=== PATIENT | male | born 1965 | race Caucasian/White ===

== ENCOUNTER 2018-06-09 15:49 | Inpatient (IN) | payer OTHER ==
[2018-06-09 15:54] VITALS: BMI 30.9
--- NOTE | 2018-06-09 16:03 | PDOC ---
History of Present Illness - General Chief Complaint: Chest Pain Stated Complaint: SOB, DIZZINESS, CHEST HEAVINESS Time Seen by Provider: 06/09/18 16:02 - History of Present Illness Initial Comments: 52yo M with PMH of "early HTN" presenting with shortness of breath, chest pain, and lightheadedness. Patient states that his symptoms started this morning. He describes his chest pain as "heavy" and it is non-radiating. No nausea, vomiting , or diaphoresis. Patient feels like he cannot catch his breath even as he is laying on the stretcher. Patient has had this lightheaded sensation in the past , but his current state is more severe. He also reports a "buzzing" sensation in his ears. Saw a consultant education (does not remember the name) about five years ago because of chest pain and had a stress test which he believes was normal because only lifestyle changes (better diet and exercise) were advised. Never had an PA. Father had a stroke in his 60s. No hemoptysis, no recent surgical history, no recent immobilization, no hormone use, no history of DVT or PE. Denies history of abnormal heart rhythm. Endorses some chills that started during history-taking. No fevers or abdominal pain. Past History - Past Medical History Allergies/Adverse Reactions: Allergies Allergy/AdvReac Type Severity Reaction Status Date / Time No Known Drug Allergies Allergy Verified 06/09/18 15:50 CATS Allergy Severe Difficulty Uncoded 06/09/18 15:50 Breathing ENVIRONMENTAL Allergy Intermediate NASAL Uncoded 06/09/18 15:50 CONGESTIN/ITCHY WATERY EYES Home Medications: Ambulatory Orders C/Sourcherry/Celery/Grape Seed [Tart Palmer Capsule] 1 each PO DAILY 06/09/18 Glucosamine/D3/Boswellia Julia [Osteo Bi-Flex Caplet] 2 each PO DAILY 06/09/18 [place]-3/Dha/Epa/Fish Oil [Fish Oil 500 mg Softgel] 1 each PO DAILY 06/09/18 Anemia: No Asthma: No Cancer: No Cardiac Disorders: No CVA: No COPD: No CHF: No Dementia: No Diabetes: No GI Disorders: No Disorders: No HTN: No (BORDERLINE/NO MEDS) Hypercholesterolemia: No Liver Disease: No Seizures: No Thyroid Disease: No - Surgical History Abdominal Surgery: No Appendectomy: No Cardiac Surgery: No Cholecystectomy: No Lung Surgery: No Neurologic Surgery: No Orthopedic Surgery: Yes (LEFT KNEE SCOPE 1994/ACL LEFT KNEE 2004) - Suicide/Smoking/Psychosocial Hx Smoking History: Never smoked Have you smoked in the past 12 months: No Hx Alcohol Use: No Drug/Substance Use Hx: No Substance Use Type: Alcohol, Marijuana Hx Substance Use Treatment: No Review of Systems - Review of Systems Comments:: Constitutional: no fever, +chills HEENT: no throat pain, no dysphagia Cardiovascular: +chest pain, no palpitations Respiratory: +cough, +shortness of breath Gastrointestinal: no abdominal pain, no nausea Genitourinary: no dysuria, no frequency Musculoskeletal: no myalgia, no arthralgia Skin: no rash, no itching Neurologic: no headache, +lightheaded *Physical Exam - Vital Signs Last Vital Signs Temp Pulse Resp BP Pulse Ox 97.6 F 83 18 129/97 99 06/09/18 15:49 06/09/18 15:49 06/09/18 15:49 06/09/18 15:49 06/09/18 15:49 - Physical Exam Comments: General: Awake, alert, and fully oriented, in no acute distress Head: No signs of trauma Eyes: EOMI, sclera anicteric ENT: Moist mucus membranes Neck: Normal ROM, supple Lungs: Lungs clear, Normal breath sounds Cardio: Regular rhythm, S1 and S2 present Abdomen: Soft, nontender. No guarding, no rebound, no masses Extremities: Normal range of motion, Distal pulses present SKIN: Warm, Dry, normal turgor Neurologic: Cranial nerves II through XII grossly intact. Normal speech Moderate Sedation - Procedure Monitoring Vital Signs: Procedure Monitoring Vital Signs Temperature 97.6 F 06/09/18 15:49 Pulse Rate 83 06/09/18 15:49 Respiratory Rate 18 06/09/18 15:49 Blood Pressure 129/97 06/09/18 15:49 O2 Sat by Pulse Oximetry (%) 99 06/09/18 15:49 ED Treatment Course - LABORATORY CBC & Chemistry Diagram: 06/10/18 05:30 06/10/18 05:30 Medical Decision Making - Medical Decision Making 52yo M with PMH of "early HTN" presenting with shortness of breath, chest pain, and lightheadedness. EKG: rate 188, Qtc 414, Afib with RVR (no prior EKGs available) Patient denies prior history of afib or other abnormal heart rhythm. Since he has felt lightheaded in the past, it is possible that he has had uncontrolled afib. Due to concern for thrombi from Afib, D-dimer was sent and heparin drip was initiated. IV, O2, monitor Cardiac workup. 1L NS, 10mg diltiazem Patient continued to be tachycardic, so another 1L NS was given ASA given CXR with cardiomegaly, but no acute pathology Tpn<0.03 Pending BNP and D-dimer 06/09/18 18:03 CTA report pending Elevated BNP Dr. Mesa discussed this case with the hospitalist who accepted patient for admission. 06/09/18 18:45 *DC/Admit/Observation/Transfer Diagnosis at time of Disposition: New onset atrial fibrillation - Discharge Dispostion Condition at time of disposition: Stable - Referrals - Patient Instructions - Post Discharge Activity
--- NOTE | 2018-06-09 16:05 | PDOC ---
Attending Attestation - Resident Resident Name: Gia Hanna - ED Attending Attestation I have performed the following: I have examined & evaluated the patient, The case was reviewed & discussed with the resident, I agree w/resident's findings & plan - HPI HPI: 06/09/18 17:07 Pt comes with chest heaviness and tightness and SOB and incidentally found to be in rapid afib. He doesn't use drugs. He doesn't smoke, and doesn't use cocaine. Pt states he had a marijuana gummy bear 1 month ago. Pt has no fevers or chills. No N/V/D; he ate only a bagel all day. He felt ill all day. Came in with girlfriend, who left work to bring him in. - Physicial Exam PE: 06/09/18 17:18 Agree with resident exam. - Medical Decision Making 06/09/18 17:18 Pt came in rapid afib; immediately, 1L IVF saline was started as initial BP was low. Repeat BP's higher, so we have 10mg diltiazem IVPush. Pt remained tachy at 160-200s, so 2nd IV saline was started. Pt is periodically taking heavy breaths, and he states that he has had similar chest palpitations and SOB and tightness in the past, so I am worried that he may have developed blood clots in his fibrillating atria in the past and may have a PE burden. We started heparin 5000U IVP and then 1000Unit drip. Pt also given aspirin, given that he has septal q waves and I am worried that he has been tachy all day and that may be straining his heart and may result in NE. 06/09/18 17:22 Alcohol level <3 TSH,Ddimer,BNP pending 06/09/18 17:42 borderline cardiomegaly 06/09/18 17:44 Labs normal; 1st cardiac enzyme normal. BNP pending and d dimer pending 06/09/18 18:14 Pt will be signed out to the night ER doc
[2018-06-09] MEDS ORDERED: SODIUM CHLORIDE 0.9% 500 ML INFUS.BAG IV ONE ×2 (16:18→17:49)
[2018-06-09] MEDS ORDERED: dilTIAZem HCL 50 MG/10 ML - 10 ML VIAL IVPUSH ONE (16:18)
[2018-06-09] MEDS ORDERED: dilTIAZem HCL 50 MG/10 ML - 10 ML VIAL ONE (16:27)
[2018-06-09 16:32] LABS: BASO % 1.9 % (0-2.0); EOS % 1.9 % (0-4.5); HEMATOCRIT 46.2 % (35.4-49); HEMOGLOBIN 15.5 GM/dl (11.7-16.9); LYMPH % 14.5 % (8-40); MCH 30.7 pg (25.7-33.7); MCHC 33.5 g/dl (32.0-35.9); MEAN CELL VOLUME 91.4 fl (80-96); MEAN PLT VOLUME 8.6 fl (7.5-11.1); MONO % 7.8 % (3.8-10.2); NEUT % 73.9 % (42.8-82.8); PLATELET COUNT 268 K/MM3 (134-434); RBC 5.05 M/mm3 (4.00-5.60); RDW 12.1 % (11.9-15.9); WHITE BLOOD COUNT 9.5 K/mm3 (4.0-10.8)
[2018-06-09] MEDS ORDERED: HEPARIN INFUSION - 25,000 UNITS/500 ML INFUS.BAG IVPB ONE (16:56)
[2018-06-09] MEDS ORDERED: HEPARIN NA (PORCINE) 5,000 UNITS/ML 1ML VIAL ONE (16:56)
[2018-06-09] MEDS ORDERED: ASPIRIN 81 MG CHEWABLE TABLETS PO ONE (16:58)
[2018-06-09 17:00] LABS: INR 1.02 (0.82-1.09); PROTHROMBIN TIME (PATIENT) 11.4 SEC (10.2-13.0)
[2018-06-09] MEDS ORDERED: HEPARIN NA (PORCINE) 5,000 UNITS/ML 1ML VIAL IVPUSH PRN (17:00)
[2018-06-09] MEDS ORDERED: ASPIRIN 81 MG CHEWABLE TABLETS ONE (17:01)
[2018-06-09] MEDS: HEPARIN NA (PORCINE) 5,000 UNITS/ML 1ML VIAL IVPUSH PRN (17:01)
[2018-06-09 17:04] LABS: ALBUMIN 3.9 g/dl (3.4-5.0); ALK PHOS 62 U/L (45-117); ANION GAP 6 MMOL/L (8-16); BILIRUBIN,TOTAL 0.9 mg/dl (0.2-1); BLOOD UREA NITROGEN 12 mg/dl (7-18); CALCIUM 9.2 mg/dl (8.5-10); CHLORIDE 105 mmol/L (98-107); CO2 25 mmol/L (21-32); CREATININE 0.8 mg/dl (0.55-1.3); GLUCOSE,RANDOM 104 mg/dl (74-106); POTASSIUM 4.2 mmol/L (3.5-5.1); SGOT/AST 18 U/L (15-37); SGPT/ALT 17 U/L (13-61); SODIUM 136 mmol/L (136-145); TOT PROT 6.9 g/dl (6.4-8.2)
[2018-06-09] MEDS: HEPARIN - 25,000 UNIT in SODIUM CHLORIDE 495 ML IV SCH (17:07)
[2018-06-09 18:21] LABS: URINE APPEARANCE Clear; URINE BILIRUBIN Negative (NEGATIVE); URINE COLOR Yellow; URINE GLUCOSE (UA) Negative (NEGATIVE); URINE KETONE Negative (NEGATIVE); URINE LEUK ESTERASE Negative (NEGATIVE); URINE NITRITE Negative (NEGATIVE); URINE PROTEIN Negative (NEGATIVE); URINE UROBILINOGEN 0.2 (0.2-1.0)
[2018-06-09 19:17] LABS: COCAINE, UR NEGATIVE ng/ml (CUTOFF=300); METHADONE, UR NEGATIVE ng/ml (CUTOFF=300); OPIATES, URI NEGATIVE ng/ml (CUTOFF=300); PHENCYCLIDINE,URINE NEGATIVE ng/ml (CUTOFF=25); URINE BARBITURATES NEGATIVE ng/ml (CUTOFF=200); URINE BENZODIAZEPINES NEGATIVE ng/ml (CUTOFF=200)
[2018-06-09 19:18] LABS: URINE AMPHETAMINES NEGATIVE ng/ml (CUTOFF=500)
--- NOTE | 2018-06-09 21:27 | PDOC ---
*Physical Exam - Vital Signs Last Vital Signs Temp Pulse Resp BP Pulse Ox 97.6 F 76 16 141/88 99 06/09/18 15:49 06/09/18 20:00 06/09/18 20:00 06/09/18 20:00 06/09/18 20:00 ED Treatment Course - LABORATORY CBC & Chemistry Diagram: 06/09/18 16:22 06/09/18 16:22 - ADDITIONAL ORDERS Additional order review: Laboratory Results 06/09/18 06/09/18 06/09/18 17:40 17:40 16:47 PT with INR INR PTT (Actin FS) D-Dimer Sodium Potassium Chloride Carbon Dioxide Anion Gap BUN Creatinine Creat Clearance w eGFR Random Glucose Calcium Total Bilirubin AST ALT Alkaline Phosphatase Creatine Kinase Troponin I B-Natriuretic Peptide 185.3 H Total Protein Albumin TSH Urine Color Yellow Urine Appearance Clear Urine pH 7.0 Ur Specific [place] 1.010 Urine Protein Negative Urine Glucose (UA) Negative Urine Ketones Negative Urine Blood Negative Urine Nitrite Negative Urine Bilirubin Negative Urine Urobilinogen 0.2 Ur Leukocyte Esterase Negative Opiates Screen Negative Methadone Screen Negative Barbiturate Screen Negative Phencyclidine Screen Negative Ur Amphetamines Screen Negative MDMA (Ecstasy) Screen Negative Benzodiazepines Screen Negative Cocaine Screen Negative U Marijuana (THC) Screen Negative Alcohol, Quantitative 06/09/18 06/09/18 06/09/18 16:47 16:28 16:28 PT with INR 11.4 INR 1.02 PTT (Actin FS) 27.6 D-Dimer 256 Sodium Potassium Chloride Carbon Dioxide Anion Gap BUN Creatinine Creat Clearance w eGFR Random Glucose Calcium Total Bilirubin AST ALT Alkaline Phosphatase Creatine Kinase Troponin I B-Natriuretic Peptide Total Protein Albumin TSH Urine Color Urine Appearance Urine pH Ur Specific [place] Urine Protein Urine Glucose (UA) Urine Ketones Urine Blood Urine Nitrite Urine Bilirubin Urine Urobilinogen Ur Leukocyte Esterase Opiates Screen Methadone Screen Barbiturate Screen Phencyclidine Screen Ur Amphetamines Screen MDMA (Ecstasy) Screen Benzodiazepines Screen Cocaine Screen U Marijuana (THC) Screen Alcohol, Quantitative 06/09/18 06/09/18 06/09/18 16:22 16:22 16:22 PT with INR INR PTT (Actin FS) D-Dimer Sodium 136 Potassium 4.2 Chloride 105 Carbon Dioxide 25 Anion Gap 6 L BUN 12 Creatinine 0.8 Creat Clearance w eGFR > 60 Random Glucose 104 Calcium 9.2 Total Bilirubin 0.9 AST 18 ALT 17 Alkaline Phosphatase 62 Creatine Kinase 49 Troponin I < 0.03 B-Natriuretic Peptide Total Protein 6.9 Albumin 3.9 TSH 0.91 Urine Color Urine Appearance Urine pH Ur Specific [place] Urine Protein Urine Glucose (UA) Urine Ketones Urine Blood Urine Nitrite Urine Bilirubin Urine Urobilinogen Ur Leukocyte Esterase Opiates Screen Methadone Screen Barbiturate Screen Phencyclidine Screen Ur Amphetamines Screen MDMA (Ecstasy) Screen Benzodiazepines Screen Cocaine Screen U Marijuana (THC) Screen Alcohol, Quantitative < 3.0 06/09/18 16:22 RBC 5.05 MCV 91.4 MCHC 33.5 RDW 12.1 MPV 8.6 Neutrophils % 73.9 Lymphocytes % 14.5 Monocytes % 7.8 Eosinophils % 1.9 Basophils % 1.9 - Medications Given in the ED: ED Medications Discontinued Medications Generic Name Dose Route Start Last Admin Trade Name Freq PRN Reason Stop Dose Admin Aspirin 324 mg 06/09/18 16:58 06/09/18 17:03 Asa - PO 06/09/18 16:59 324 mg ONCE ONE Administration Diltiazem HCl 10 mg 06/09/18 16:18 06/09/18 16:29 Cardizem Injection - IVPUSH 06/09/18 16:19 10 mg ONCE ONE Administration Sodium Chloride 1,000 ml 06/09/18 16:18 06/09/18 16:29 Normal Saline - IV 06/09/18 16:19 1,000 ml ONCE ONE Administration Sodium Chloride 1,000 ml 06/09/18 17:49 06/09/18 17:35 Normal Saline - IV 06/09/18 17:50 1,000 ml ONCE ONE Administration Progress Note - Progress Note Progress Note: Care of this patient was transferred to sd at 1800 hrs. This is a 52-year-old female who came in with new onset atrial fibrillation. Patient had some short initiated shortness of breath and chest discomfort. Patient given Cardizem for rate control and a workup was initiated. Patient was heparinized Patient is waiting for transfer to [facility] for a telemetry bed. *DC/Admit/Observation/Transfer Diagnosis at time of Disposition: New onset atrial fibrillation - Discharge Dispostion Condition at time of disposition: Stable Decision to Admit order: Yes - Referrals Referrals: Lucina Hairston [Primary Care Provider] - - Patient Instructions - Post Discharge Activity
[2018-06-09] MEDS ORDERED: TEMAZEPAM 15 MG CAPSULE PO ONE (23:30)
--- NOTE | 2018-06-09 23:48 | HP ---
CHIEF COMPLAINT: chest heaviness, shortness of breath and palpitations HISTORY OF PRESENT ILLNESS: 52 year old male with history of hypertension (on no medications) who presents to ER with complaints of chest heaviness described as an elephant sitting on his chest, shortness of breath and palpitations which has been ongoing for a long period of time. Today he reported having palpitations also . He was found to have new onset atrial fibrillation with RVR heart rate 170's. He denied excessive use of alcohol, caffeine, or drug use. He denied prior history of arrthymias or stroke. Upon questioning patient reports patient snores at night, denies history of sleep apnea. Initially in the ER blood pressure was soft and he received 1 liter of fluids. He was then given IV bolus of Cardizem 10 mg for heart rate control which showed improvement. D-Dimer was elevated at 256. CT angiogram of chest showed no evidence of pulmonary embolism. BNP is 185, troponin normal, EKG atrial fibrillation with RVR, CXR showed mild cardiomegaly. TSH was normal. Toxicology screen was negative. He was initiated on a continuous IV heparin drip. He was transferred from [place] to [facility] for a telemetry bed and further cardiac management and evaluation. On arrival to floor he is in a normal sinus rhythm with heart rate in the upper 80's and 90's. Recent Travel: Denies PAST MEDICAL HISTORY: Hypertension PAST SURGICAL HISTORY: hernia repair 2 years ago left leg surgery Social History: Smoking:Denies Alcohol:Denies, drinks 2 cups of coffee a day Drugs: Denies Family History: Father had congestive heart failure, + family history of stroke Allergies No Known Drug Allergies Allergy (Verified 06/09/18 15:50) CATS Allergy (Severe, Uncoded 06/09/18 15:50) Difficulty Breathing ENVIRONMENTAL Allergy (Intermediate, Uncoded 06/09/18 15:50) NASAL CONGESTIN/ITCHY WATERY EYES HOME MEDICATIONS: Home Medications Medication Instructions Recorded C/Sourcherry/Celery/Grape Seed 1 each PO DAILY 06/09/18 [Tart Palmer Capsule] Glucosamine/D3/Boswellia Julia 2 each PO DAILY 06/09/18 [Osteo Bi-Flex Caplet] [place]-3/Dha/Epa/Fish Oil [Fish Oil 1 each PO DAILY 06/09/18 500 mg Softgel] REVIEW OF SYSTEMS CONSTITUTIONAL: Absent: fever, chills, diaphoresis, generalized weakness, malaise, loss of appetite, weight change HEENT: Absent: rhinorrhea, nasal congestion, throat pain, throat swelling, difficulty swallowing, mouth swelling, ear pain, eye pain, visual changes CARDIOVASCULAR: Absent: chest pain, syncope, palpitations, irregular heart rate, lightheadedness , peripheral edema RESPIRATORY: Absent: cough, shortness of breath, dyspnea with exertion, orthopnea, wheezing, stridor, hemoptysis GASTROINTESTINAL: Absent: abdominal pain, abdominal distension, nausea, vomiting, diarrhea, constipation, melena, hematochezia GENITOURINARY: Absent: dysuria, frequency, urgency, hesitancy, hematuria, flank pain, genital pain MUSCULOSKELETAL: Absent: myalgia, arthralgia, joint swelling, back pain, neck pain SKIN: Absent: rash, itching, pallor HEMATOLOGIC/IMMUNOLOGIC: Absent: easy bleeding, easy bruising, lymphadenopathy, frequent infections ENDOCRINE: Absent: unexplained weight gain, unexplained weight loss, heat intolerance, cold intolerance NEUROLOGIC: Absent: headache, focal weakness or paresthesias, dizziness, unsteady gait, seizure, mental status changes, bladder or bowel incontinence PSYCHIATRIC: Absent: anxiety, depression, suicidal or homicidal ideation, hallucinations. PHYSICAL EXAMINATION Vital Signs - 24 hr 06/09/18 06/09/18 06/09/18 15:49 16:10 16:29 Temperature 97.6 F Pulse Rate 83 Pulse Rate [ 181 H Apical] Respiratory 18 19 Rate Blood Pressure 129/97 Blood Pressure 133/94 [Left Arm] O2 Sat by Pulse 99 100 100 Oximetry (%) 06/09/18 06/09/18 06/09/18 16:48 17:21 18:52 Temperature Pulse Rate Pulse Rate [ 171 H 91 H 83 Apical] Respiratory 18 20 18 Rate Blood Pressure Blood Pressure 123/99 137/94 144/93 [Left Arm] O2 Sat by Pulse 100 100 100 Oximetry (%) 06/09/18 06/09/18 20:00 22:04 Temperature Pulse Rate Pulse Rate [ 76 85 Apical] Respiratory 16 16 Rate Blood Pressure Blood Pressure 141/88 127/84 [Left Arm] O2 Sat by Pulse 99 96 Oximetry (%) GENERAL: awake, alert, and fully oriented, in no acute distress. HEAD: normal with no signs of trauma. EYES: Pupils equal, round and reactive to light EARS, NOSE, THROAT: Ears normal, nares patent NECK: Normal range of motion, supple LUNGS: Breath sounds equal, clear to auscultation bilaterally. no wheezing, no rales no use of accessory muscle use HEART: Regular rate and rhythm, normal S1 and S2 no murmurs ABDOMEN: soft, nontender, not distended, normoactive bowel sounds MUSCULOSKELETAL: normal range of motion at all joints UPPER EXTREMITIES: 2+ pulses, warm, well-perfused. No cyanosis. No clubbing. No peripheral edema. LOWER EXTREMITIES: 2+ pulses, warm, well-perfused. No calf tenderness. No peripheral edema. NEUROLOGICAL: no neuro focal deficits, normal speech, normal gait. PSYCHIATRIC: cooperative. good eye contact. appropriate mood and affect. SKIN: warm, dry, normal turgor, no rashes or lesions noted, normal capillary refill. Laboratory Results - last 24 hr 06/09/18 06/09/18 06/09/18 16:22 16:22 16:22 WBC 9.5 RBC 5.05 Hgb 15.5 Hct 46.2 MCV 91.4 MCH 30.7 MCHC 33.5 RDW 12.1 Plt Count 268 MPV 8.6 Absolute Neuts (auto) 7.0 Neutrophils % 73.9 Lymphocytes % 14.5 Monocytes % 7.8 Eosinophils % 1.9 Basophils % 1.9 PT with INR INR PTT (Actin FS) D-Dimer Sodium 136 Potassium 4.2 Chloride 105 Carbon Dioxide 25 Anion Gap 6 L BUN 12 Creatinine 0.8 Creat Clearance w eGFR > 60 Random Glucose 104 Calcium 9.2 Total Bilirubin 0.9 AST 18 ALT 17 Alkaline Phosphatase 62 Creatine Kinase 49 Troponin I < 0.03 B-Natriuretic Peptide Total Protein 6.9 Albumin 3.9 TSH 0.91 Urine Color Urine Appearance Urine pH Ur Specific [place] Urine Protein Urine Glucose (UA) Urine Ketones Urine Blood Urine Nitrite Urine Bilirubin Urine Urobilinogen Ur Leukocyte Esterase Opiates Screen Methadone Screen Barbiturate Screen Phencyclidine Screen Ur Amphetamines Screen MDMA (Ecstasy) Screen Benzodiazepines Screen Cocaine Screen U Marijuana (THC) Screen Alcohol, Quantitative 06/09/18 06/09/18 06/09/18 16:22 16:28 16:28 WBC RBC Hgb Hct MCV MCH MCHC RDW Plt Count MPV Absolute Neuts (auto) Neutrophils % Lymphocytes % Monocytes % Eosinophils % Basophils % PT with INR 11.4 INR 1.02 PTT (Actin FS) 27.6 D-Dimer Sodium Potassium Chloride Carbon Dioxide Anion Gap BUN Creatinine Creat Clearance w eGFR Random Glucose Calcium Total Bilirubin AST ALT Alkaline Phosphatase Creatine Kinase Troponin I B-Natriuretic Peptide Total Protein Albumin TSH Urine Color Urine Appearance Urine pH Ur Specific [place] Urine Protein Urine Glucose (UA) Urine Ketones Urine Blood Urine Nitrite Urine Bilirubin Urine Urobilinogen Ur Leukocyte Esterase Opiates Screen Methadone Screen Barbiturate Screen Phencyclidine Screen Ur Amphetamines Screen MDMA (Ecstasy) Screen Benzodiazepines Screen Cocaine Screen U Marijuana (THC) Screen Alcohol, Quantitative < 3.0 06/09/18 06/09/18 06/09/18 16:47 16:47 17:40 WBC RBC Hgb Hct MCV MCH MCHC RDW Plt Count MPV Absolute Neuts (auto) Neutrophils % Lymphocytes % Monocytes % Eosinophils % Basophils % PT with INR INR PTT (Actin FS) D-Dimer 256 Sodium Potassium Chloride Carbon Dioxide Anion Gap BUN Creatinine Creat Clearance w eGFR Random Glucose Calcium Total Bilirubin AST ALT Alkaline Phosphatase Creatine Kinase Troponin I B-Natriuretic Peptide 185.3 H Total Protein Albumin TSH Urine Color Urine Appearance Urine pH Ur Specific [place] Urine Protein Urine Glucose (UA) Urine Ketones Urine Blood Urine Nitrite Urine Bilirubin Urine Urobilinogen Ur Leukocyte Esterase Opiates Screen Negative Methadone Screen Negative Barbiturate Screen Negative Phencyclidine Screen Negative Ur Amphetamines Screen Negative MDMA (Ecstasy) Screen Negative Benzodiazepines Screen Negative Cocaine Screen Negative U Marijuana (THC) Screen Negative Alcohol, Quantitative 06/09/18 17:40 WBC RBC Hgb Hct MCV MCH MCHC RDW Plt Count MPV Absolute Neuts (auto) Neutrophils % Lymphocytes % Monocytes % Eosinophils % Basophils % PT with INR INR PTT (Actin FS) D-Dimer Sodium Potassium Chloride Carbon Dioxide Anion Gap BUN Creatinine Creat Clearance w eGFR Random Glucose Calcium Total Bilirubin AST ALT Alkaline Phosphatase Creatine Kinase Troponin I B-Natriuretic Peptide Total Protein Albumin TSH Urine Color Yellow Urine Appearance Clear Urine pH 7.0 Ur Specific [place] 1.010 Urine Protein Negative Urine Glucose (UA) Negative Urine Ketones Negative Urine Blood Negative Urine Nitrite Negative Urine Bilirubin Negative Urine Urobilinogen 0.2 Ur Leukocyte Esterase Negative Opiates Screen Methadone Screen Barbiturate Screen Phencyclidine Screen Ur Amphetamines Screen MDMA (Ecstasy) Screen Benzodiazepines Screen Cocaine Screen U Marijuana (THC) Screen Alcohol, Quantitative ASSESSMENT/PLAN: Mr. Murrieta is a 52 year old male with history of hypertension (on no medications) who presented with symptoms of chest heaviness, shortness of breath and palpitations. He was found to have new onset atrial fibrillation with RVR heart rate 170's. Initially in the ER blood pressure was soft and he received 1 liter of fluids. H was then given IV bolus of Cardizem 10 mg for heart rate control which showed improvement. D-Dimer was elevated at 256. CT angiogram of chest showed no evidence of pulmonary embolism. CXR showed mild cardiolmegaly. TSH was normal. Toxicology screen was negative. He was transferred from [place] to a telemetry bed and a further cardiac evaluation. New Onset Atrial Fibrillation Currently he is in a normal sinus rhythm with good heart rate control.Patient appears euvolemic.Potassium WNL. Added metoprolol tartrate 25 mg twice daily. Continue with continue IV heparin for anticoagulation. CUCO VASc score is 1 for stroke risk (hypertension). Cardiology- Dr. 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 TSH is normal. May benefit from an outpatient sleep study evaluation to exclude sleep apnea. Pending TTE to exclude tacycardia induced cardiomyopathy. Check magnesium level in am. Chest Pain Currently denies symptoms of chest discomfort.Initial troponin is normal. EKG with no acute signs of ischemia, nonspecific ST changes. Continue to trend troponins. Will defer workup to Cardiology evaluation. Will keep NPO after midnight in case stress test is recommended. CXR with mild cardiomegaly. Echocardiogram has been ordered to evaluate LV function and exclude wall motion and valvular abnormalities. Hypertension Controlled. Continue with beta naeem. FEN NPO, monitor electrolytes closely Visit type - Emergency Visit Emergency Visit: Yes ED Registration Date: 06/09/18 Care time: The patient presented to the Emergency Department on the above date and was hospitalized for further evaluation of their emergent condition. - New Patient This patient is new to me today: Yes Date on this admission: 06/10/18 - Critical Care Critical Care patient: No
[2018-06-09] MEDS: METOPROLOL TARTRATE 25 MG TABLET (FP) PO SCH (23:57)
[2018-06-10] MEDS: HEPARIN - 25,000 UNIT in SODIUM CHLORIDE 495 ML IV SCH ×2 (00:30→18:48)
[2018-06-10] MEDS: HEPARIN NA (PORCINE) 5,000 UNITS/ML 1ML VIAL IVPUSH PRN (01:31)
[2018-06-10 06:49] LABS: HEMATOCRIT 40.4 % (35.4-49); HEMOGLOBIN 13.8 GM/dL (11.7-16.9); MCH 31.2 pg (25.7-33.7); MCHC 34.2 g/dl (32.0-35.9); MEAN CELL VOLUME 91.3 fl (80-96); MEAN PLT VOLUME 9.1 fl (7.5-11.1); PLATELET COUNT 207 K/MM3 (134-434); RBC 4.42 M/mm3 (4.00-5.60); RDW 12.7 % (11.9-15.9); WHITE BLOOD COUNT 7.9 K/mm3 (4.0-10.0)
[2018-06-10 07:34] LABS: ANION GAP 8 MMOL/L (8-16); BLOOD UREA NITROGEN 10 mg/dL (7-18); CALCIUM 8.7 mg/dL (8.5-10.1); CHLORIDE 108 mmol/L (98-107); CHOLESTEROL 171 mg/dL (50-200); CO2 26 mmol/L (21-32); CREATININE 0.8 mg/dL (0.55-1.3); GLUCOSE,RANDOM 86 mg/dL (74-106); HDL CHOLESTEROL 71 mg/dL (40-60); MAGNESIUM 1.6 mg/dL (1.8-2.4); POTASSIUM 3.7 mmol/L (3.5-5.1); SODIUM 142 mmol/L (136-145); TRIGLYCERIDES 71 mg/dL (0-150)
--- NOTE | 2018-06-10 08:15 | CON.CARD ---
Consult Consult Specialty:: Cardiology Reason for Consultation:: af cp - History of Present Illness History of Present Illness: 52 year old male with history of hypertension (on no medications) who presents to ER with complaints of chest heaviness described as an elephant sitting on his chest, shortness of breath and palpitations which has been ongoing for a long period of time. Today he reported having palpitations also . He was found to have new onset atrial fibrillation with RVR heart rate 170's. He denied excessive use of alcohol, caffeine, or drug use. He denied prior history of arrthymias or stroke. Upon questioning patient reports patient snores at night, denies history of sleep apnea. Initially in the ER blood pressure was soft and he received 1 liter of fluids. He was then given IV bolus of Cardizem 10 mg for heart rate control which showed improvement. D-Dimer was elevated at 256. CT angiogram of chest showed no evidence of pulmonary embolism. BNP is 185, troponin normal, EKG atrial fibrillation with RVR, CXR showed mild cardiomegaly. TSH was normal. Toxicology screen was negative. He was initiated on a continuous IV heparin drip. He was transferred from [place] to [facility] for a telemetry bed and further cardiac management and evaluation. On arrival to floor he is in a normal sinus rhythm with heart rate in the upper 80's and 90's. - History Source History Provided By: Patient, Medical Record Limitations to Obtaining History: No Limitations - Alcohol/Substance Use Hx Alcohol Use: No - Smoking History Smoking history: Never smoked Have you smoked in the past 12 months: No Home Medications - Allergies Allergies/Adverse Reactions: Allergies Allergy/AdvReac Type Severity Reaction Status Date / Time No Known Drug Allergies Allergy Verified 06/09/18 15:50 CATS Allergy Severe Difficulty Uncoded 06/09/18 15:50 Breathing ENVIRONMENTAL Allergy Intermediate NASAL Uncoded 06/09/18 15:50 CONGESTIN/ITCHY WATERY EYES - Home Medications Home Medications: Ambulatory Orders C/Sourcherry/Celery/Grape Seed [Tart Palmer Capsule] 1 each PO DAILY 06/09/18 Glucosamine/D3/Boswellia Julia [Osteo Bi-Flex Caplet] 2 each PO DAILY 06/09/18 [place]-3/Dha/Epa/Fish Oil [Fish Oil 500 mg Softgel] 1 each PO DAILY 06/09/18 Review of Systems - Review of Systems Constitutional: reports: No Symptoms Eyes: reports: No Symptoms HENT: reports: No Symptoms Neck: reports: No Symptoms Cardiovascular: reports: Chest Pain, Palpitations Gastrointestinal: reports: No Symptoms Genitourinary: reports: No Symptoms Breasts: reports: No Symptoms Reported Musculoskeletal: reports: No Symptoms Integumentary: reports: No Symptoms Neurological: reports: No Symptoms Endocrine: reports: No Symptoms Hematology/Lymphatic: reports: No Symptoms Psychiatric: reports: No Symptoms Vital Signs: Vital Signs Temperature 97.8 F 06/10/18 02:00 Pulse Rate 65 06/10/18 06:00 Respiratory Rate 20 06/10/18 06:00 Blood Pressure 137/85 06/10/18 06:00 O2 Sat by Pulse Oximetry (%) 96 06/09/18 23:05 Constitutional: Yes: Well Nourished, No Distress, Calm Eyes: Yes: WNL, Conjunctiva Clear, EOM Intact HENT: Yes: WNL, Atraumatic, Normocephalic Neck: Yes: WNL, Supple, Trachea Midline Respiratory: Yes: WNL, Regular, CTA Bilaterally Gastrointestinal: Yes: WNL, Normal Bowel Sounds Renal/: Yes: WNL Cardiovascular: Yes: WNL, Regular Rate and Rhythm Musculoskeletal: Yes: WNL Extremities: Yes: WNL Integumentary: Yes: WNL Neurological: Yes: WNL, Alert, Oriented ...Motor Strength: WNL Psychiatric: Yes: WNL, Alert, Oriented - Other Data Labs, Other Data: CBC, BMP 06/10/18 05:30 06/10/18 05:30 INR, PTT INR 1.02 (0.82-1.09) 06/09/18 16:28 Troponin, BNP 06/09/18 06/09/18 06/10/18 16:22 16:47 05:30 Troponin I < 0.03 < 0.02 B-Natriuretic Peptide 185.3 H Troponin, BNP 06/09/18 06/09/18 06/10/18 16:22 16:47 05:30 Troponin I < 0.03 < 0.02 B-Natriuretic Peptide 185.3 H Laboratory Tests 06/09/18 06/09/18 06/09/18 16:22 16:22 16:22 WBC 9.5 RBC 5.05 Hgb 15.5 Hct 46.2 MCV 91.4 MCH 30.7 MCHC 33.5 RDW 12.1 Plt Count 268 MPV 8.6 Absolute Neuts (auto) 7.0 Neutrophils % 73.9 Lymphocytes % 14.5 Monocytes % 7.8 Eosinophils % 1.9 Basophils % 1.9 PT with INR INR PTT (Actin FS) D-Dimer Sodium 136 Potassium 4.2 Chloride 105 Carbon Dioxide 25 Anion Gap 6 L BUN 12 Creatinine 0.8 Creat Clearance w eGFR > 60 Random Glucose 104 Calcium 9.2 Magnesium Total Bilirubin 0.9 AST 18 ALT 17 Alkaline Phosphatase 62 Creatine Kinase 49 Troponin I < 0.03 B-Natriuretic Peptide Total Protein 6.9 Albumin 3.9 Triglycerides Cholesterol Total LDL Cholesterol HDL Cholesterol TSH 0.91 Urine Color Urine Appearance Urine pH Ur Specific [place] Urine Protein Urine Glucose (UA) Urine Ketones Urine Blood Urine Nitrite Urine Bilirubin Urine Urobilinogen Ur Leukocyte Esterase Opiates Screen Methadone Screen Barbiturate Screen Phencyclidine Screen Ur Amphetamines Screen MDMA (Ecstasy) Screen Benzodiazepines Screen Cocaine Screen U Marijuana (THC) Screen Alcohol, Quantitative 06/09/18 06/09/18 06/09/18 16:22 16:28 16:28 WBC RBC Hgb Hct MCV MCH MCHC RDW Plt Count MPV Absolute Neuts (auto) Neutrophils % Lymphocytes % Monocytes % Eosinophils % Basophils % PT with INR 11.4 INR 1.02 PTT (Actin FS) 27.6 D-Dimer Sodium Potassium Chloride Carbon Dioxide Anion Gap BUN Creatinine Creat Clearance w eGFR Random Glucose Calcium Magnesium Total Bilirubin AST ALT Alkaline Phosphatase Creatine Kinase Troponin I B-Natriuretic Peptide Total Protein Albumin Triglycerides Cholesterol Total LDL Cholesterol HDL Cholesterol TSH Urine Color Urine Appearance Urine pH Ur Specific [place] Urine Protein Urine Glucose (UA) Urine Ketones Urine Blood Urine Nitrite Urine Bilirubin Urine Urobilinogen Ur Leukocyte Esterase Opiates Screen Methadone Screen Barbiturate Screen Phencyclidine Screen Ur Amphetamines Screen MDMA (Ecstasy) Screen Benzodiazepines Screen Cocaine Screen U Marijuana (THC) Screen Alcohol, Quantitative < 3.0 06/09/18 06/09/18 06/09/18 16:47 16:47 17:40 WBC RBC Hgb Hct MCV MCH MCHC RDW Plt Count MPV Absolute Neuts (auto) Neutrophils % Lymphocytes % Monocytes % Eosinophils % Basophils % PT with INR INR PTT (Actin FS) D-Dimer 256 Sodium Potassium Chloride Carbon Dioxide Anion Gap BUN Creatinine Creat Clearance w eGFR Random Glucose Calcium Magnesium Total Bilirubin AST ALT Alkaline Phosphatase Creatine Kinase Troponin I B-Natriuretic Peptide 185.3 H Total Protein Albumin Triglycerides Cholesterol Total LDL Cholesterol HDL Cholesterol TSH Urine Color Urine Appearance Urine pH Ur Specific [place] Urine Protein Urine Glucose (UA) Urine Ketones Urine Blood Urine Nitrite Urine Bilirubin Urine Urobilinogen Ur Leukocyte Esterase Opiates Screen Negative Methadone Screen Negative Barbiturate Screen Negative Phencyclidine Screen Negative Ur Amphetamines Screen Negative MDMA (Ecstasy) Screen Negative Benzodiazepines Screen Negative Cocaine Screen Negative U Marijuana (THC) Screen Negative Alcohol, Quantitative 06/09/18 06/09/18 06/10/18 17:40 23:00 05:30 WBC 7.9 RBC 4.42 Hgb 13.8 Hct 40.4 MCV 91.3 MCH 31.2 MCHC 34.2 RDW 12.7 Plt Count 207 MPV 9.1 Absolute Neuts (auto) Neutrophils % Lymphocytes % Monocytes % Eosinophils % Basophils % PT with INR INR PTT (Actin FS) 36.4 D-Dimer Sodium Potassium Chloride Carbon Dioxide Anion Gap BUN Creatinine Creat Clearance w eGFR Random Glucose Calcium Magnesium Total Bilirubin AST ALT Alkaline Phosphatase Creatine Kinase Troponin I B-Natriuretic Peptide Total Protein Albumin Triglycerides Cholesterol Total LDL Cholesterol HDL Cholesterol TSH Urine Color Yellow Urine Appearance Clear Urine pH 7.0 Ur Specific [place] 1.010 Urine Protein Negative Urine Glucose (UA) Negative Urine Ketones Negative Urine Blood Negative Urine Nitrite Negative Urine Bilirubin Negative Urine Urobilinogen 0.2 Ur Leukocyte Esterase Negative Opiates Screen Methadone Screen Barbiturate Screen Phencyclidine Screen Ur Amphetamines Screen MDMA (Ecstasy) Screen Benzodiazepines Screen Cocaine Screen U Marijuana (THC) Screen Alcohol, Quantitative 06/10/18 06/10/18 06/10/18 05:30 05:30 05:30 WBC RBC Hgb Hct MCV MCH MCHC RDW Plt Count MPV Absolute Neuts (auto) Neutrophils % Lymphocytes % Monocytes % Eosinophils % Basophils % PT with INR INR PTT (Actin FS) D-Dimer Sodium 142 Potassium 3.7 Chloride 108 H Carbon Dioxide 26 Anion Gap 8 BUN 10 Creatinine 0.8 Creat Clearance w eGFR > 60 Random Glucose 86 Calcium 8.7 Magnesium 1.6 L Total Bilirubin AST ALT Alkaline Phosphatase Creatine Kinase Troponin I < 0.02 B-Natriuretic Peptide Total Protein Albumin Triglycerides 71 Cancelled Cholesterol 171 Cancelled Total LDL Cholesterol 97 Cancelled HDL Cholesterol 71 H Cancelled TSH Urine Color Urine Appearance Urine pH Ur Specific [place] Urine Protein Urine Glucose (UA) Urine Ketones Urine Blood Urine Nitrite Urine Bilirubin Urine Urobilinogen Ur Leukocyte Esterase Opiates Screen Methadone Screen Barbiturate Screen Phencyclidine Screen Ur Amphetamines Screen MDMA (Ecstasy) Screen Benzodiazepines Screen Cocaine Screen U Marijuana (THC) Screen Alcohol, Quantitative 06/10/18 07:40 WBC RBC Hgb Hct MCV MCH MCHC RDW Plt Count MPV Absolute Neuts (auto) Neutrophils % Lymphocytes % Monocytes % Eosinophils % Basophils % PT with INR INR PTT (Actin FS) 51.4 H D-Dimer Sodium Potassium Chloride Carbon Dioxide Anion Gap BUN Creatinine Creat Clearance w eGFR Random Glucose Calcium Magnesium Total Bilirubin AST ALT Alkaline Phosphatase Creatine Kinase Troponin I B-Natriuretic Peptide Total Protein Albumin Triglycerides Cholesterol Total LDL Cholesterol HDL Cholesterol TSH Urine Color Urine Appearance Urine pH Ur Specific [place] Urine Protein Urine Glucose (UA) Urine Ketones Urine Blood Urine Nitrite Urine Bilirubin Urine Urobilinogen Ur Leukocyte Esterase Opiates Screen Methadone Screen Barbiturate Screen Phencyclidine Screen Ur Amphetamines Screen MDMA (Ecstasy) Screen Benzodiazepines Screen Cocaine Screen U Marijuana (THC) Screen Alcohol, Quantitative Imaging - Results Chest X-ray: Image Reviewed (borderline cardiomegaly no i/e) EKG: Image Reviewed (af rvr) Problem List - Problems (1) New onset atrial fibrillation Code(s): I48.91 - UNSPECIFIED ATRIAL FIBRILLATION Assessment/Plan AF RVR in SR now CP ?CM CXR ?CHF slightly elevated BNP Fatty liver Dilated Aortic root on ECHO- nl on CT ECHO dilated LV 5.9 cm, borderline reduced EF, nl LA size Plan cont bb IV heparin for now MIBI ST in AM decision re AC will be made after reviewing MIBI ST results
--- NOTE | 2018-06-10 09:40 | EKG ---
Test Reason : Blood Pressure : / mmHG Vent. Rate : 188 BPM Atrial Rate : 197 BPM P-R Int : 000 ms QRS Dur : 080 ms QT Int : 234 ms P-R-T Axes : 000 066 059 degrees QTc Int : 414 ms ATRIAL FIBRILLATION WITH RAPID VENTRICULAR RESPONSE NONSPECIFIC ST ABNORMALITY ABNORMAL ECG NO PREVIOUS ECGS AVAILABLE Confirmed by ERIC JO, JOAN ([id number]) on 06/10/2018 9:40:50 AM Referred By: DR VALIENTE Confirmed By:JOAN REYES MD
--- NOTE | 2018-06-10 09:42 | EKG ---
Test Reason : Blood Pressure : / mmHG Vent. Rate : 165 BPM Atrial Rate : 157 BPM P-R Int : 000 ms QRS Dur : 076 ms QT Int : 212 ms P-R-T Axes : 000 063 -11 degrees QTc Int : 351 ms ATRIAL FIBRILLATION WITH RAPID VENTRICULAR RESPONSE SEPTAL INFARCT , AGE UNDETERMINED ABNORMAL ECG WHEN COMPARED WITH ECG OF 09-JUN-2018 16:12, NONSPECIFIC T WAVE ABNORMALITY NOW EVIDENT IN INFERIOR LEADS NONSPECIFIC T WAVE ABNORMALITY NOW EVIDENT IN ANTEROLATERAL LEADS Confirmed by JOAN REYES MD ([id number]) on 06/10/2018 9:41:26 AM Referred By: DR VALIENTE Confirmed By:JOAN REYES MD
[2018-06-10] MEDS ORDERED: PNEUMOC 13-VAL CONJ-DIP CRM/PF 0.5 ML DISP.SYRIN IM ONE (10:00)
[2018-06-10] MEDS ORDERED: POTASSIUM CHLORIDE TABS 20 MEQ TABLET.ER (FP) PO ONE (10:45)
--- NOTE | 2018-06-10 11:17 | ECHO ---
Name: STEVEN RAEDR Exam:Adult Echocardiogram Study Date: 06/10/2018 08:38 AM Age: 52 yrs Reason For Study: NEW ONSET AF, CHECK EF Height: 70 in Weight: 216 lb BSA: 2.2 m2 MMode/2D Measurements & Calculations IVSd: 0.99 cm Ao root diam: 4.3 cm LVIDd: 5.9 cm LA dimension: 3.6 cm LVIDs: 4.2 cm ACS: 2.2 cm LVPWd: 1.0 cm IVSs: 1.4 cm LVPWs: 1.3 cm EDV(Teich): 170.1 ml ESV(Teich): 80.3 ml Doppler Measurements & Calculations MV E max ailyn: 40.5 cm/sec Ao V2 max: 96.4 cm/sec MV A max ailyn: 42.9 cm/sec Ao max P.7 mmHg MV E/A: 0.94 Ao V2 mean: 70.0 cm/sec Ao mean P.3 mmHg Ao V2 VTI: 19.7 cm MR max ailyn: 479.4 cm/sec TR max ailyn: 199.2 cm/sec MR max P.0 mmHg TR max P.9 mmHg Med Peak E' Ailyn: 7.3 cm/sec Med E/e': 5.5 Lat Peak E' Ailyn: 11.2 cm/sec Lat E/e': 3.6 Procedure A two-dimensional transthoracic echocardiogram with color flow and Doppler was performed. Left Ventricle The left ventricle is moderately dilated. Left ventricular systolic function is borderline reduced. E /A reversal consistent with but not diagnostic of poor LV compliance. The left ventricular wall motion i s normal. Right Ventricle The right ventricle is normal in size and function. Atria Normal left and right atrial size and function. Mitral Valve There is mild mitral valve thickening. There is no mitral valve stenosis. There is mild to moderate m itral regurgitation. Tricuspid Valve There is mild tricuspid valve thickening. There is no tricuspid stenosis. There is mild tricuspid regurgitation. Right ventricular systolic pressure is normal. Aortic Valve The aortic valve is not well visualized. No hemodynamically significant valvular aortic stenosis. No aortic regurgitation is present. Pulmonic Valve The pulmonic valve is not well visualized. Great Vessels Moderate aortic root dilatation. Pericardium/Pleura There is no pericardial effusion. Interpretation Summary The left ventricle is moderately dilated. Moderate aortic root dilatation. Left ventricular systolic function is borderline reduced. There is mild to moderate mitral regurgitation. E/A reversal consistent with but not diagnostic of poor LV compliance There is mild tricuspid regurgitation. Right ventricular systolic pressure is normal. The left ventricular wall motion is normal. MD Rodriguez Harris 06/10/2018 11:16 AM
[2018-06-10] MEDS: METOPROLOL TARTRATE 25 MG TABLET (FP) PO SCH ×2 (11:21→22:35)
--- NOTE | 2018-06-10 11:46 | PN ---
Progress Note, Physician History of Present Illness: 24HR events -pt evaluated in [place] ED for chest pain, noted to be hemodynamically unstable in Afib w/ RVR. Pt given fluids and cardizem IVP. pt started on heparin and PO metoprolol. SR on telemetry -Transferred [facility] for further management -Trop x 2 negative -Echo done this AM, results pending -Pt NPO, stress testing ordered (to be done 06/11) - Current Medication List Current Medications: Active Medications Heparin Sodium (Porcine) (Heparin -) 5,000 unit IVPUSH PRN PRN PRN Reason: Heparin Last Admin: 06/10/18 01:31 Dose: 5,000 unit Heparin Sodium (Porcine) (Heparin -) 1,000 unit IVPUSH PRN PRN PRN Reason: Heparin Heparin Sodium (Porcine) 25, (000 unit/ Sodium Chloride) 500 mls @ 20 mls/hr IV TITR [place]IDIA; Protocol Last Admin: 06/10/18 00:30 Dose: 1,150 unit/hr, 23 mls/hr Magnesium Sulfate (Magnesium Sulfate) 2 gm IVPB ONCE ONE Stop: 06/10/18 12:01 Metoprolol Tartrate (Lopressor -) 25 mg PO BID [facility]IA Last Admin: 06/10/18 11:21 Dose: 25 mg - Objective Vital Signs: Vital Signs Temperature 98.0 F 06/10/18 10:44 Pulse Rate 77 06/10/18 10:44 Respiratory Rate 16 06/10/18 10:44 Blood Pressure 143/89 06/10/18 10:44 O2 Sat by Pulse Oximetry (%) 96 06/10/18 09:00 Constitutional: Yes: Well Nourished, No Distress, Calm Eyes: Yes: Conjunctiva Clear, PERRL HENT: Yes: Atraumatic, Normocephalic Neck: Yes: Supple, Trachea Midline Cardiovascular: Yes: Regular Rate and Rhythm Respiratory: Yes: Regular, CTA Bilaterally Gastrointestinal: Yes: Normal Bowel Sounds, Soft ...Rectal Exam: Yes: Deferred Musculoskeletal: Yes: WNL Extremities: Yes: WNL Edema: No Peripheral Pulses WNL: Yes Peripheral Pulses: Left Radial: 2+, Right Radial: 2+ Integumentary: Yes: WNL Neurological: Yes: Alert, Oriented ...Motor Strength: WNL Psychiatric: Yes: Alert, Oriented Labs: CBC, BMP 06/10/18 05:30 06/10/18 05:30 INR, PTT INR 1.02 (0.82-1.09) 06/09/18 16:28 - ....Imaging Chest X-ray: Pending (CXR 06/10/2018) Other: Pending (ECHO 06/10/18), Other (Stress testing 06/10/2018) Problem List - Problems (1) Chest pain Assessment/Plan: CP resolved, trop negative Stress test today cardiology recs appreciated Code(s): R07.9 - CHEST PAIN, UNSPECIFIED (2) HTN (hypertension) Assessment/Plan: ? diet controlled BP range in house 123/74 to 143/29 pt currently on metoprolol 25mg BID cardiac diet Code(s): I10 - ESSENTIAL (PRIMARY) HYPERTENSION (3) Prophylactic measure Assessment/Plan: pt currently on heparin drip, if stres negative d/c heparin drip bowel regimen w/ senna and colace Protonix 20mg daily OOB to chair Ambulate as tolerated Code(s): Z29.9 - ENCOUNTER FOR PROPHYLACTIC MEASURES, UNSPECIFIED (4) New onset atrial fibrillation Assessment/Plan: continue BB pt now in SR, if stress negative pt can be transitioned to ASA or if preferred by cards a NOAC cont tele monitoring Code(s): I48.91 - UNSPECIFIED ATRIAL FIBRILLATION Impression/Plan Impression/Plan: DISPO: Full code Visit type - Emergency Visit Emergency Visit: Yes ED Registration Date: 06/09/18 Care time: The patient presented to the Emergency Department on the above date and was hospitalized for further evaluation of their emergent condition. - New Patient This patient is new to me today: Yes Date on this admission: 06/10/18 - Critical Care Critical Care patient: No - Discharge Referral Referred to [facility] Med P.C.: No
[2018-06-10] MEDS ORDERED: SENNOSIDES 8.6MG TABLET (FP) PO PRN (11:51)
[2018-06-10] MEDS ORDERED: DOCUSATE SODIUM 100 MG CAPSULE (FP) PO PRN (11:51)
[2018-06-10] MEDS ORDERED: MAGNESIUM SULF 50% (8.12 MEQ/2 ML-1 GM VIAL) IVPB ONE (12:00)
[2018-06-10] MEDS: PANTOPRAZOLE 20 MG TABLET (FP) PO SCH (12:13)
--- NOTE | 2018-06-10 12:47 | EKG ---
Test Reason : Blood Pressure : / mmHG Vent. Rate : 065 BPM Atrial Rate : 065 BPM P-R Int : 172 ms QRS Dur : 090 ms QT Int : 426 ms P-R-T Axes : 029 046 045 degrees QTc Int : 443 ms NORMAL SINUS RHYTHM NORMAL ECG WHEN COMPARED WITH ECG OF 09-JUN-2018 23:02, PREMATURE ATRIAL COMPLEXES ARE NO LONGER PRESENT T WAVE AMPLITUDE HAS INCREASED IN ANTERIOR LEADS Confirmed by ERIC JO, JOAN ([id number]) on 06/10/2018 12:46:56 PM Referred By: Semaj ALICEA Confirmed By:JOAN REYES MD
[2018-06-10] MEDS ORDERED: MELATONIN 5 MG TABLETS PO PRN (22:04)
[2018-06-10] MEDS ORDERED: HEPARIN INFUSION - 25,000 UNITS/500 ML INFUS.BAG IVPB SCH (22:59)
[2018-06-11 07:08] LABS: ALBUMIN 3.5 g/dl (3.4-5.0); ALK PHOS 62 U/L (45-117); ANION GAP 9 MMOL/L (8-16); BILIRUBIN,TOTAL 0.9 mg/dL (0.2-1); BLOOD UREA NITROGEN 13 mg/dL (7-18); CALCIUM 8.7 mg/dL (8.5-10.1); CHLORIDE 107 mmol/L (98-107); CO2 25 mmol/L (21-32); CREATININE 0.8 mg/dL (0.55-1.3); GLUCOSE,RANDOM 88 mg/dL (74-106); MAGNESIUM 1.9 mg/dL (1.8-2.4); SGOT/AST 15 U/L (15-37); SGPT/ALT 28 U/L (13-61); SODIUM 141 mmol/L (136-145); TOT PROT 6.8 g/dl (6.4-8.2)
[2018-06-11 07:31] LABS: HEMATOCRIT 43.3 % (35.4-49); HEMOGLOBIN 14.9 GM/dL (11.7-16.9); MCH 31.8 pg (25.7-33.7); MCHC 34.4 g/dl (32.0-35.9); MEAN CELL VOLUME 92.4 fl (80-96); MEAN PLT VOLUME 9.3 fl (7.5-11.1); PLATELET COUNT 196 K/MM3 (134-434); RBC 4.69 M/mm3 (4.00-5.60); RDW 12.8 % (11.9-15.9); WHITE BLOOD COUNT 7.5 K/mm3 (4.0-10.0)
[2018-06-11] MEDS ORDERED: amLODIPine BESYLATE 5 MG TABLET (FP) PO ONE (09:10)
[2018-06-11] MEDS ORDERED: amLODIPine BESYLATE 5 MG TABLET (FP) ONE (09:11)
[2018-06-11] MEDS: METOPROLOL TARTRATE 25 MG TABLET (FP) PO SCH (12:25)
[2018-06-11] MEDS: PANTOPRAZOLE 20 MG TABLET (FP) PO SCH (12:26)
--- NOTE | 2018-06-11 14:32 | PN ---
Progress Note, Physician Chief Complaint: Pt A&Ox3; asymptomatic. History of Present Illness: Pt comes with chest heaviness and tightness and SOB and incidentally found to be in rapid afib. He doesn't use drugs. He doesn't smoke, and doesn't use cocaine. Pt states he had a marijuana gummy bear 1 month ago. Pt has no fevers or chills. No N/V/D; he ate only a bagel all day. He felt ill all day. Came in with girlfriend, who left work to bring him in. - - Current Medication List Current Medications: Active Medications Docusate Sodium (Colace -) 100 mg PO Q8H PRN PRN Reason: CONSTIPATION Heparin Sodium (Porcine) (Heparin -) 5,000 unit IVPUSH PRN PRN PRN Reason: Heparin Last Admin: 06/10/18 01:31 Dose: 5,000 unit Heparin Sodium (Porcine) (Heparin -) 1,000 unit IVPUSH PRN PRN PRN Reason: Heparin Last Admin: 06/11/18 12:25 Dose: 1,000 unit Heparin Sodium/Dextrose (Heparin Infusion -) 25,000 units in 500 mls @ 22 mls/ hr IVPB TITR [facility]; Protocol Last Titration: 06/11/18 12:29 Dose: 1,350 unit/hr, 27 mls/hr Melatonin (Melatonin) 5 mg PO HS PRN PRN Reason: INSOMNIA Last Admin: 06/10/18 22:37 Dose: 5 mg Metoprolol Tartrate (Lopressor -) 25 mg PO BID [facility] Last Admin: 06/11/18 12:25 Dose: 25 mg Pantoprazole Sodium (Protonix -) 20 mg PO DAILY [facility] Last Admin: 06/11/18 12:26 Dose: 20 mg Senna (Senna -) 2 tab PO HS PRN PRN Reason: CONSTIPATION - Objective Vital Signs: Vital Signs Temperature 98.4 F 06/11/18 07:55 Pulse Rate 82 06/11/18 12:23 Respiratory Rate 20 06/11/18 12:23 Blood Pressure 136/89 06/11/18 12:23 O2 Sat by Pulse Oximetry (%) 97 06/11/18 07:55 Constitutional: Yes: Calm, Obese Eyes: Yes: WNL HENT: Yes: WNL Neck: Yes: WNL Cardiovascular: Yes: WNL Respiratory: Yes: WNL Gastrointestinal: Yes: WNL ...Rectal Exam: Yes: Deferred Genitourinary: No: Anuria Breast(s): Yes: WNL Musculoskeletal: Yes: WNL Extremities: Yes: WNL Edema: No Peripheral Pulses WNL: Yes Integumentary: Yes: WNL Neurological: Yes: WNL ...Motor Strength: WNL Psychiatric: Yes: WNL Labs: CBC, BMP 06/11/18 05:30 06/11/18 05:30 INR, PTT INR 1.02 (0.82-1.09) 06/09/18 16:28 Abnormal Lab Results 06/10/18 06/11/18 18:40 05:30 PTT (Actin FS) 44.8 H 37.5 H - ....Imaging Other: Image Reviewed (telemetry: NSR) Problem List - Problems (1) Fatty liver Assessment/Plan: suggested on CT; AST and ALT WNL; f/u. Code(s): K76.0 - FATTY (CHANGE OF) LIVER, NOT ELSEWHERE CLASSIFIED (2) Chest pressure Assessment/Plan: stress MIBI results pending. Addendum: Stress MIBI shows small area of anteroseptal ischemia; mildly reduced LVEF. Pt agrees for [facility]ornary angiogram at [facility] tomorrow. Give clopidogrel 600 mg now, then 75 mg daily. Atorvastatin 80 mg now; keep LDL < 70 mg/dL. ASA 81 mg daily. On IV heparin (CAD; PAF). Code(s): R07.89 - OTHER CHEST PAIN (3) HTN (hypertension) Code(s): I10 - ESSENTIAL (PRIMARY) HYPERTENSION (4) New onset atrial fibrillation Assessment/Plan: On IV heparin. Now in NSR. On metoprolol for HR control. For coronary angiogram (+ stress MIBI). Code(s): I48.91 - UNSPECIFIED ATRIAL FIBRILLATION (5) Hyperlipidemia Assessment/Plan: LDL in 90s mg/dL. Code(s): E78.5 - HYPERLIPIDEMIA, UNSPECIFIED
--- NOTE | 2018-06-11 15:31 | EKG ---
Test Reason : Blood Pressure : / mmHG Vent. Rate : 063 BPM Atrial Rate : 063 BPM P-R Int : 154 ms QRS Dur : 088 ms QT Int : 426 ms P-R-T Axes : 048 036 034 degrees QTc Int : 435 ms SINUS RHYTHM WITH OCCASIONAL PREMATURE VENTRICULAR COMPLEXES OTHERWISE NORMAL ECG WHEN COMPARED WITH ECG OF 10-JUN-2018 12:24, PREMATURE VENTRICULAR COMPLEXES ARE NOW PRESENT Confirmed by MICHAEL JO, TERESA ([id number]) on 06/11/2018 3:30:52 PM Referred By: Confirmed By:TERESA RODRIGUEZ MD
--- NOTE | 2018-06-11 15:45 | EKG ---
Test Reason : Blood Pressure : / mmHG Vent. Rate : 096 BPM Atrial Rate : 096 BPM P-R Int : 158 ms QRS Dur : 090 ms QT Int : 362 ms P-R-T Axes : 028 031 039 degrees QTc Int : 457 ms SINUS RHYTHM WITH PREMATURE ATRIAL COMPLEXES NONSPECIFIC ST AND T WAVE ABNORMALITY ABNORMAL ECG WHEN COMPARED WITH ECG OF 09-JUN-2018 16:57, SINUS RHYTHM HAS REPLACED ATRIAL FIBRILLATION VENT. RATE HAS DECREASED BY 69 BPM CRITERIA FOR SEPTAL INFARCT ARE NO LONGER PRESENT ST NO LONGER DEPRESSED IN ANTEROLATERAL LEADS NONSPECIFIC T WAVE ABNORMALITY, IMPROVED IN ANTEROLATERAL LEADS Confirmed by TERESA RODRIGUEZ MD ([id number]) on 06/11/2018 3:45:32 PM Referred By: Confirmed By:TERESA RODRIGUEZ MD
[2018-06-11] MEDS ORDERED: CLOPIDOGREL BISULFATE 300 MG TABLET PO ONE (16:53)
[2018-06-11] MEDS ORDERED: ASPIRIN 325 MG TABLET PO ONE (16:54)
--- NOTE | 2018-06-11 18:46 | PN ---
Physical Exam: SUBJECTIVE: Patient seen and examined. He denies chest pain, SOB, palpitations. OBJECTIVE: Vital Signs Period Temp Pulse Resp BP Sys/Lopez Pulse Ox Last 24 Hr 97.9 F-98.4 F 58-82 16-20 116-139/75-91 94-97 GENERAL: The patient is awake, alert, and fully oriented, in no acute distress. LUNGS: Breath sounds equal, clear to auscultation bilaterally, no wheezes, no crackles, no accessory muscle use. HEART: Regular rate and rhythm, S1, S2 without murmur, rub or gallop. ABDOMEN: Soft, nontender, nondistended, normoactive bowel sounds, no guarding, no rebound, no hepatosplenomegaly, no masses. EXTREMITIES: 2+ pulses, warm, well-perfused, no edema. Laboratory Results - last 24 hr 06/10/18 06/11/18 06/11/18 18:40 05:30 05:30 WBC 7.5 RBC 4.69 Hgb 14.9 Hct 43.3 MCV 92.4 MCH 31.8 MCHC 34.4 RDW 12.8 Plt Count 196 MPV 9.3 PTT (Actin FS) 44.8 H 37.5 H Sodium Potassium Chloride Carbon Dioxide Anion Gap BUN Creatinine Creat Clearance w eGFR Random Glucose Calcium Magnesium Total Bilirubin AST ALT Alkaline Phosphatase Total Protein Albumin 06/11/18 05:30 WBC RBC Hgb Hct MCV MCH MCHC RDW Plt Count MPV PTT (Actin FS) Sodium 141 Potassium 4.0 Chloride 107 Carbon Dioxide 25 Anion Gap 9 BUN 13 Creatinine 0.8 Creat Clearance w eGFR > 60 Random Glucose 88 Calcium 8.7 Magnesium 1.9 Total Bilirubin 0.9 AST 15 ALT 28 Alkaline Phosphatase 62 Total Protein 6.8 Albumin 3.5 Active Medications Generic Name Dose Route Start Last Admin Trade Name Freq PRN Reason Stop Dose Admin Aspirin 81 mg 06/12/18 10:00 Asa - PO DAILY [facility] Clopidogrel Bisulfate 75 mg 06/12/18 10:00 Plavix - PO DAILY [facility]IDIA Docusate Sodium 100 mg 06/10/18 11:51 Colace - PO Q8H PRN CONSTIPATION Heparin Sodium (Porcine) 5,000 unit 06/09/18 16:56 06/10/18 01:31 Heparin - IVPUSH 5,000 unit PRN PRN Administration Heparin Heparin Sodium (Porcine) 1,000 unit 06/09/18 17:00 06/11/18 12:25 Heparin - IVPUSH 1,000 unit PRN PRN Administration Heparin Heparin Sodium/Dextrose 25,000 units in 500 mls @ 22 mls/hr 06/10/18 22:59 12:29 Heparin Infusion - IVPB 1,350 unit/hr TITR ELIDIA 27 mls/hr Titration Protocol 1,100 UNIT/HR Melatonin 5 mg 06/10/18 22:04 06/10/18 22:37 Melatonin PO 5 mg HS PRN Administration INSOMNIA Metoprolol Tartrate 25 mg 06/09/18 23:45 06/11/18 12:25 Lopressor - PO 25 mg BID ELIDIA Administration Pantoprazole Sodium 20 mg 06/10/18 12:00 06/11/18 12:26 Protonix - PO 20 mg DAILY [facility]IDIA Administration Senna 2 tab 06/10/18 11:51 Senna - PO HS PRN CONSTIPATION ASSESSMENT/PLAN: This is a 52 year old man with a history of HTN who presented to the ED with chest pressure, SOB, and palpitations. 1. Paroxysmal atrial fibrillation - Converted to sinus rhythm - Continue Lopressor, heparin IV 2. Acute coronary syndrome - Troponin negative x2 - Stress test showed mild inferoseptal ischemia, EF 48% - Echo showed moderately dilated LV, borderline reduced LVEF, mild to moderate MR, E/A reversal, mild TR, normal RV systolic pressure - Continue aspirin, Plavix, Lopressor - Start Lipitor - Transfer to [facility] for cath 3. HTN - Continue Lopressor 4. Hyperlipidemia - Start Lipitor Visit type - Emergency Visit Emergency Visit: Yes ED Registration Date: 06/09/18 Care time: The patient presented to the Emergency Department on the above date and was hospitalized for further evaluation of their emergent condition. - New Patient This patient is new to me today: Yes Date on this admission: 06/11/18 - Critical Care Critical Care patient: No - Discharge Referral Referred to [facility] No
[2018-06-11] MEDS ORDERED: ATORVASTATIN CA 80 MG TABLET (FP) PO ONE (18:55)
[2018-06-11 19:06] VITALS: BP 138/91; PULSE 77; TEMP 97.8
--- NOTE | 2018-06-12 06:39 | DS ---
Physical Exam: SUBJECTIVE: Patient seen and examined OBJECTIVE: Vital Signs Period Temp Pulse Resp BP Sys/Lopez Pulse Ox Last 24 Hr 97.8 F-98.4 F 75-82 16-20 116-138/75-91 97 PHYSICAL EXAM GENERAL: The patient is awake, alert, and fully oriented, in no acute distress. HEAD: Normal with no signs of trauma. EYES: PERRL, extraocular movements intact, sclera anicteric, conjunctiva clear. ENT: Ears normal, nares patent, oropharynx clear without exudates, moist mucous membranes. NECK: Trachea midline, full range of motion, supple. LUNGS: Breath sounds equal, clear to auscultation bilaterally, no wheezes, no crackles, no accessory muscle use. HEART: Regular rate and rhythm, S1, S2 without murmur, rub or gallop. ABDOMEN: Soft, nontender, nondistended, normoactive bowel sounds, no guarding, no rebound, no hepatosplenomegaly, no masses. EXTREMITIES: 2+ pulses, warm, well-perfused, no edema. NEUROLOGICAL: Cranial nerves II through XII grossly intact. Normal speech, gait not observed. PSYCH: Normal mood, normal affect. SKIN: Warm, dry, normal turgor, no rashes or lesions noted. LABS Laboratory Results - last 24 hr 06/11/18 06/11/18 06/11/18 05:30 05:30 05:30 WBC 7.5 RBC 4.69 Hgb 14.9 Hct 43.3 MCV 92.4 MCH 31.8 MCHC 34.4 RDW 12.8 Plt Count 196 MPV 9.3 PTT (Actin FS) 37.5 H Sodium 141 Potassium 4.0 Chloride 107 Carbon Dioxide 25 Anion Gap 9 BUN 13 Creatinine 0.8 Creat Clearance w eGFR > 60 Random Glucose 88 Calcium 8.7 Magnesium 1.9 Total Bilirubin 0.9 AST 15 ALT 28 Alkaline Phosphatase 62 Total Protein 6.8 Albumin 3.5 06/11/18 20:20 WBC RBC Hgb Hct MCV MCH MCHC RDW Plt Count MPV PTT (Actin FS) 41.3 H Sodium Potassium Chloride Carbon Dioxide Anion Gap BUN Creatinine Creat Clearance w eGFR Random Glucose Calcium Magnesium Total Bilirubin AST ALT Alkaline Phosphatase Total Protein Albumin HOSPITAL COURSE: Date of Admission:06/09/18 Date of Discharge: 06/12/18 Discharge Summary Reason For Visit: NEW ONSET A FIB Condition: Stable - Instructions Referrals: Lucina Hairston [Primary Care Provider] - Disposition: TRANSFER ACUTE CARE/OTHER HOSP - Home Medications Comprehensive Discharge Medication List: Ambulatory Orders C/Sourcherry/Celery/Grape Seed [Tart Palmer Capsule] 1 each PO DAILY 06/09/18 Glucosamine/D3/Boswellia Julia [Osteo Bi-Flex Caplet] 2 each PO DAILY 06/09/18 [place]-3/Dha/Epa/Fish Oil [Fish Oil 500 mg Softgel] 1 each PO DAILY 06/09/18 - Discharge Referral Referred to [facility] No
[2018-06-12] MEDS ORDERED: CLOPIDOGREL BISULFATE 75 MG TABLET (FP) PO SCH (10:00)
[2018-06-12] MEDS ORDERED: ASPIRIN 81 MG CHEWABLE TABLETS PO SCH (10:00)
== END 2018-06-11 20:30 | disposition short-term general hospital (02) | DRG 201 ==
LOC: FER 15:49 → J4W 23:05
PROVIDERS: ADMIT Internal Medicine; ATTEND Internal Medicine
DX: I48.0 Paroxysmal atrial fibrillation (principal); I10 Essential (primary) hypertension; E66.9 Obesity, unspecified; I24.9 Acute ischemic heart disease, unspecified; K76.0 Fatty (change of) liver, not elsewhere classified; E78.5 Hyperlipidemia, unspecified; Z68.30 Body mass index [BMI] 30.0-30.9, adult
CPT/HCPCS: 36415; 71045-TC-FY; 71275-TC; 78452-TC; 80048; 80053; 80061; 80307; 81003; 82550; 83721; 83735; 83880; 84443; 84484; 85025; 85027; 85379; 85610; 85730; 87040; 87086; 90670; 93005; 93010; 93017; 93306-TC; 99284-25; A9502; J1644

== ENCOUNTER 2021-03-02 17:55 | Emergency (ER) | payer OTHER ==
[2021-03-02 18:26] VITALS: BP 137/104; PULSE 87; TEMP 97.9; BMI 33.0
[2021-03-02 18:56] LABS: BASO % 2.7 % (0-2.0); EOS % 3.6 % (0-4.5); HEMATOCRIT 44.2 % (35.4-49); HEMOGLOBIN 14.6 GM/dl (11.7-16.9); LYMPH % 9.5 % (8-40); MCH 31.2 pg (25.7-33.7); MEAN CELL VOLUME 94.8 fl (80-96); MONO % 12.4 % (3.8-10.2); NEUT % 71.8 % (42.8-82.8); PLATELET COUNT 205 10^3/uL (134-434); RBC 4.66 M/mm3 (4.00-5.60); WHITE BLOOD COUNT 10.1 K/mm3 (4.0-10.8)
[2021-03-02 19:06] LABS: ALBUMIN 4.1 g/dl (3.4-5.0); CALCIUM 9.1 mg/dl (8.5-10); CREATININE 0.9 mg/dl (0.55-1.3); TOT PROT 7.1 g/dl (6.4-8.2); URIC ACID 8.2 mg/dl (2.6-7.2)
[2021-03-02] MEDS ORDERED: ACETAMINOPHEN 1000 MG/100 ML VIAL IVPB ONE (19:58)
[2021-03-02] MEDS ORDERED: CEFTRIAXONE 1,000 MG in DEXTROSE 5%-WATER - 50 ML IVPB STA (19:58)
[2021-03-02] MEDS ORDERED: ACETAMINOPHEN INJECTION 100 ML IVPB ONE (20:02)
[2021-03-02] MEDS ORDERED: cefTRIAXone SODIUM 1 GM VIAL ONE (20:02)
== END 2021-03-02 20:50 | disposition home or self-care (01) ==
LOC: FER 17:55
PROC: 3E0333Z Introduction of Anti-inflammatory into Peripheral Vein, Percutaneous Approach (ICD-10-PCS; principal; 2021-03-02)
PROC: 3E03329 Introduction of Other Anti-infective into Peripheral Vein, Percutaneous Approach (ICD-10-PCS; 2021-03-02)
DX: M25.561 Pain in right knee (principal); L03.115 Cellulitis of right lower limb
CPT/HCPCS: 36415; 73560-TC-RT-FY; 80053; 84550; 85025; 99284-25; J0131

== ENCOUNTER 2021-03-05 14:30 | Emergency (ER) | payer OTHER ==
[2021-03-05 14:41] VITALS: BP 127/95; PULSE 87; TEMP 99.5; BMI 33.0
[2021-03-05] MEDS ORDERED: SULFAMETHOXAZOLE/TRIMETHOPRIM 800MG/160MG D.S. TABLET PO ONE (14:44)
[2021-03-05] MEDS ORDERED: SULFAMETHOXAZOLE/TRIMETHOPRIM 800MG/160MG D.S. TABLET ONE (15:35)
== END 2021-03-05 16:25 | disposition home or self-care (01) ==
LOC: FER 14:30
DX: L03.115 Cellulitis of right lower limb (principal)
CPT/HCPCS: 93971-TC; 99284-25

== ENCOUNTER 2021-03-07 14:32 | Emergency (ER) | payer OTHER ==
[2021-03-07 14:36] VITALS: BP 136/87; PULSE 87; TEMP 99.6; BMI 32.8
== END 2021-03-07 14:56 | disposition home or self-care (01) ==
LOC: FER 14:32
DX: Z48.00 Encounter for change or removal of nonsurgical wound dressing (principal)
CPT/HCPCS: 99281-25

== ENCOUNTER 2021-03-19 11:15 | Emergency (ER) | payer OTHER ==
[2021-03-19 11:43] VITALS: BP 142/98; PULSE 91; TEMP 98.2; BMI 33.0
== END 2021-03-19 12:36 | disposition home or self-care (01) ==
LOC: FER 11:15
DX: R22.41 Localized swelling, mass and lump, right lower limb (principal)
CPT/HCPCS: 73610-TC-RT-FY; 73630-TC-RT-FY; 99283-25